=== PATIENT | female | born 1965 | race American Indian/Alaskan Native ===

== ENCOUNTER 2018-06-03 11:35 | Outpatient (CLI) | payer OTHER ==
--- NOTE | 2018-06-03 15:59 | Mammography Report ---
BONE DEXA:06/03/18 11:35:00 CLINICAL: Postmenopausal. No comparison. TECHNIQUE: Two site bone DEXA performed on an Hologic scanner. FINDINGS: The average BMD of the lumbar spine L1-L4 is 0.942g/cm squared with a T-score of -1.9 and a Z-score of -0.9. The average BMD of the left hip is 1.000g/cm squared with a T-score of -0.2 and a Z-score of +0.2. IMPRESSION: WHO classification: Osteopenia with increased fracture risk based on both lumbar spine and left hip measurements. RECOMMENDATION: Clinical correlation and routine screening. DEFINITIONS: BMD = Bone Mineral Density T-score = BMD related to mean peak bone mass of young adult (mean expressed in Standard Deviation) Z-score = Age matched BMD expressed in SD World Health Organization (WHO) Diagnostic Criteria Normal T-score > -1 SD Osteopenia T-score between -1 and -2.4 SD Osteoporosis T-score -2.5 SD or below NOTE: BMD is not the only risk factor for fracture. One should also consider factors such as the patient's age, risk of falling, previous osteoporotic fracture, family history of osteoporotic fractures, current smoker, and low body weight. Z-scores are not calculated if >80 years of age.
--- NOTE | 2018-06-04 12:30 | Mammography Report ---
BILATERAL DIGITAL SCREENING MAMMOGRAM with CAD: 06/03/18 11:35:00 CLINICAL: Routine screening. COMPARISON: None available. She doesn't remember where she had a previous mammogram. FINDINGS: There are bilateral scattered areas of fibroglandular density.No mass, architectural distortion or suspicious calcifications. IMPRESSION: No mammographic evidence of malignancy. BI-RADS CATEGORY: 1 -- Negative RECOMMENDATION: Routine mammographic screening in one year. COMMENT: Patient follow-up letters are generated by our [employer] application.
== END 2018-06-03 11:36 | disposition home or self-care (01) ==
LOC: SPVWC 11:35
PROVIDERS: ATTEND Internal Medicine
DX: Z12.31 Encounter for screening mammogram for malignant neoplasm of breast (principal); Z13.820 Encounter for screening for osteoporosis; M85.88 Other specified disorders of bone density and structure, other site; Z78.0 Asymptomatic menopausal state
CPT/HCPCS: 77067; 77080

== ENCOUNTER 2018-07-08 12:59 | Outpatient (CLI) | payer OTHER ==
[2018-07-08 13:50] LABS: Blood Urea Nitrogen 17 mg/dL (7-17)
--- NOTE | 2018-07-08 23:36 | Cat Scan Report ---
PROCEDURE: CT ABDOMEN PELVIS W CON TECHNIQUE: Computerized axial tomography of the abdomen and pelvis was performed after the IV inject ion of iodinated nonionic contrast. CT DOSE LENGTH PRODUCT: mGycm HISTORY: WITH IV CONTRAST, ABNORMANL COLONOSCOPY COMPARISONS: None . FINDINGS: Liver, spleen, pancreas and adrenal glands are within normal limits. 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 There is no obstructive uropathy. Urinar y bladder is partially filled with normal outlines. Aorta is of normal caliber. There is no free flui d or free air. Status post cholecystectomy. Small bowel loops are within normal limits. Moderate degr ee residual stool is noted. Appendix is normal. Vertebral height is normal. 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
== END 2018-07-08 13:00 | disposition home or self-care (01) ==
LOC: CT 12:59
PROVIDERS: ATTEND Internal Medicine Gastroenterology
DX: R93.3 Abnormal findings on diagnostic imaging of other parts of digestive tract (principal)
CPT/HCPCS: 36415; 74177; 82565; 84520; Q9967

== ENCOUNTER 2020-07-26 18:20 | Emergency (ER) | payer SELFPAY ==
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
[2020-07-26 18:45] VITALS: BP 144/93
[2020-07-26 19:07] LABS: Basophils % (Auto) 0.6 % (0.0-1.8); Eosinophils # (Auto) 0.1 K/mm3 (0.0-0.4); Eosinophils % (Auto) 0.8 % (0.0-4.3); Hematocrit 42.5 % (30.3-42.9); Hemoglobin 14.2 gm/dl (10.1-14.3); Lymphocytes # (Auto) 2.3 K/mm3 (1.2-5.4); Lymphocytes % (Auto) 32.6 % (13.4-35.0); Mean Corpuscular HGB Conc 33 % (30-34); Mean Corpuscular Volume 78 fl (79-97); Monocytes # (Auto) 0.5 K/mm3 (0.0-0.8); Monocytes % (Auto) 7.8 % (0.0-7.3); Platelet Count 210 K/mm3 (140-440); Red Blood Count 5.46 M/mm3 (3.65-5.03)
[2020-07-26 19:27] LABS: BUN/Creatinine Ratio 18; Blood Urea Nitrogen 16 mg/dL (7-17); Hemolysis Index 5
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
--- NOTE | 2020-07-28 10:43 | Electrocardiograph Report ---
[facility] Test Date: 2020-07-26 Test Time: 18:47:58 Pat Name: MACKENZIE KING Department: Room: Gender: F [employer]: : 1965 Requested By: CHELY ADLER Order Number: [id number] Reading MD: Rain Castillo Measurements Intervals [place] Rate: 87 P: 76 GA: 171 QRS: -61 QRSD: 140 T: 59 QT: 402 QTc: 485 Interpretive Statements Sinus rhythm Left atrial enlargement RBBB and LAFB Left ventricular hypertrophy No previous ECG available for comparison Electronically Signed On 07-28-2020 10:43:32 EDT by Rain Castillo
== END 2020-07-26 22:22 | disposition home or self-care (01) ==
LOC: ED 18:20
DX: M79.10 Myalgia, unspecified site (principal); R51.9 Headache, unspecified; J45.909 Unspecified asthma, uncomplicated; Z90.710 Acquired absence of both cervix and uterus; Z98.890 Other specified postprocedural states; Z88.6 Allergy status to analgesic agent; Z88.8 Allergy status to other drugs, medicaments and biological substances; Z79.899 Other long term (current) drug therapy; V49.59XA Passenger injured in collision with other motor vehicles in traffic accident, initial encounter; Y92.410 Unspecified street and highway as the place of occurrence of the external cause; Y93.89 Activity, other specified; Y99.8 Other external cause status
CPT/HCPCS: 36415; 71046; 80048; 84484; 85025; 93005